=== PATIENT | male | born 1985 | race Caucasian/White ===

== ENCOUNTER 2016-08-26 19:47 | Inpatient (IN) | payer MEDICAID ==
[~2016-08-26] VITALS: Ht 152.4 cm; Wt 70.3 kg
[2016-08-26] MEDS ORDERED: ACETAMINOPHEN 325MG TABLET PO STA (22:14)
[2016-08-26] MEDS ORDERED: ONDANSETRON HCL 4MG/2ML VIAL IV STA (22:14)
[2016-08-26] MEDS ORDERED: SODIUM CHLORIDE 0.9% 1,000 ML IV ONE (22:14)
[2016-08-26] MEDS ORDERED: TRAMADOL 50MG TABLET PO ONE (22:30)
[2016-08-26 22:46] LABS: BASOPHILS % 0.4 % (0.0-2.0); CHLORIDE 96 mEq/L (98-107); EOSINOPHILS % 0.1 % (0.0-5.0); HEMATOCRIT. 44.7 % (42.0-52.0); HEMOGLOBIN. 15.7 g/dL (14.0-18.0); LYMPHOCYTES % 22.9 % (20.0-50.0); MEAN CORPUSCULAR HEMOGLOBIN 29.7 pg (28.0-32.0); MEAN CORPUSCULAR VOLUME 84.4 fL (80.0-94.0); MEAN PLATELET VOLUME 8.5 fl (7.4-10.4); MONOCYTES % 8.3 % (2.0-8.0); NEUTROPHILS % 68.3 % (40.0-76.0); PLATELET 77 x1000/uL (130-400); RED CELL DISTRIBUTION WIDTH 13.9 % (11.6-14.6)
[2016-08-26 22:50] LABS: PROTHROMBIN TIME 10.8 sec
[2016-08-26 22:53] LABS: CARBON DIOXIDE 26 mEq/L (21-32)
[2016-08-26 23:08] LABS: ETHANOL BLOOD 293 mg/dL
[2016-08-26 23:21] LABS: CLARITY URINE CLEAR (CLEAR); COLOR URINE YELLOW (YELLOW); GLUCOSE URINE NEGATIVE (NEGATIVE); KETONES URINE TRACE (NEGATIVE); LEUKOCYTE ESTERASE URINE NEGATIVE (NEGATIVE); NITRITE URINE NEGATIVE (NEGATIVE); OCCULT BLOOD URINE 3+ (NEGATIVE); PROTEIN URINE 2+ (NEGATIVE); SPECIFIC GRAVITY URINE 1.027 (1.005-1.030)
[2016-08-27] VITALS (9 sets, daily range): BP systolic 148–172; BP diastolic 73–109
[2016-08-27 00:23] LABS: *AMPHETAMINES SCREEN URINE NEGATIVE (NEGATIVE); *BARBITURATES SCREEN URINE NEGATIVE (NEGATIVE); *BENZODIAZEPINES SCREEN URINE NEGATIVE (NEGATIVE); *COCAINE SCREEN URINE NEGATIVE (NEGATIVE); CANNABINOID URINE SCREEN NEGATIVE (NEGATIVE); METHADONE URINE SCREEN NEGATIVE (NEGATIVE); OPIATES URINE SCREEN NEGATIVE (NEGATIVE); PHENCYCLIDINE URINE SCREEN NEGATIVE (NEGATIVE)
[2016-08-27] MEDS ORDERED: CEFTRIAXONE 1 G PREMIX 50 ML IV ONE (01:15)
[2016-08-27] MEDS ORDERED: AZITHROMYCIN 500 MG in DEXT 5% WATER 250 ML IV ONE (01:15)
[2016-08-27] MEDS ORDERED: SODIUM CHLORIDE 0.9% 1000ML BAG (SEPSIS BOLUS) IV ONE (01:15)
[2016-08-27] MEDS ORDERED: MORPHINE SULFATE 4 MG/ML CPJ (NOT FOR IM USE) IV ONE ×2 (02:00→04:45)
[2016-08-27] MEDS ORDERED: METOCLOPRAMIDE HCL 10MG/2ML VIAL IV ONE (02:15)
[2016-08-27] MEDS ORDERED: METRONIDAZOLE 500 MG PREMIX 100 ML IV ONE (02:30)
[2016-08-27] MEDS ORDERED: PIPERACILLIN/TAZ 3.375G PREMIX 50 ML IV ONE (02:30)
[2016-08-27 02:44] LABS: CLARITY URINE CLOUDY (CLEAR); COLOR URINE YELLOW (YELLOW); GLUCOSE URINE NEGATIVE (NEGATIVE); KETONES URINE TRACE (NEGATIVE); LEUKOCYTE ESTERASE URINE NEGATIVE (NEGATIVE); NITRITE URINE NEGATIVE (NEGATIVE); OCCULT BLOOD URINE 2+ (NEGATIVE); PROTEIN URINE 1+ (NEGATIVE)
[2016-08-27] MEDS ORDERED: ONDANSETRON HCL 4MG/2ML VIAL IV ONE ×2 (04:45→07:00)
[2016-08-27] MEDS ORDERED: LORAZEPAM 2MG/ML CPJ IV ONE ×2 (05:00→07:00)
[2016-08-27] MEDS ORDERED: SODIUM CHLORIDE 0.9% 1,000 ML IV ONE (06:47)
[2016-08-27] MEDS ORDERED: CLONIDINE 0.1MG TABLET PO PRN (09:00)
[2016-08-27] MEDS ORDERED: ACETAMINOPHEN 650MG SUPP PR PRN (09:00)
[2016-08-27] MEDS ORDERED: NA PHOS,M-B/NA PHOS,DI-BA ENEMA 118ML PR PRN (09:00)
[2016-08-27] MEDS ORDERED: DOCUSATE SODIUM 100MG CAPSULE PO PRN (09:00)
[2016-08-27] MEDS ORDERED: ACETAMINOPHEN 650MG/20.3ML UDC GT PRN (09:00)
[2016-08-27] MEDS ORDERED: GUAIFENESIN 200MG/10ML SUGAR FREE UDC PO PRN (09:00)
[2016-08-27] MEDS ORDERED: IPRATROPIUM/ALBUTEROL 0.5-3(2.5)MG/3ML NEB INH PRN (09:00)
[2016-08-27] MEDS ORDERED: ENOXAPARIN 40MG/0.4ML SYR SUBCUT SCH (09:00)
[2016-08-27] MEDS ORDERED: MAGNESIUM/ALUMINUM HYDROXIDE/SIMETHICONE 30ML UDC PO PRN (09:00)
[2016-08-27] MEDS ORDERED: ACETAMINOPHEN 325MG TABLET PO PRN (09:00)
[2016-08-27] MEDS ORDERED: LORAZEPAM 2MG/ML CPJ IV PRN (09:00)
[2016-08-27] MEDS: SODIUM CHLORIDE 0.45% 1,000 ML IV SCH ×3 (10:58→22:30)
[2016-08-27] MEDS: FOLIC ACID 1MG TABLET PO SCH (10:58)
[2016-08-27] MEDS: ONDANSETRON HCL 4MG/2ML VIAL IV PRN (11:37)
[2016-08-27] MEDS: DIPHENHYDRAMINE 50MG/ML VIAL IV PRN ×2 (11:37→20:36)
[2016-08-27] MEDS: CHLORDIAZEPOXIDE 25MG CAPSULE PO SCH ×2 (12:21→22:00)
[2016-08-27] MEDS ORDERED: POTASSIUM CHLORIDE 20MEQ TABLET SR PO NR ×2 (12:30→18:30)
[2016-08-27] MEDS: LORAZEPAM 2MG/ML CPJ IV PRN ×4 (13:14→20:36)
[2016-08-27] MEDS: SODIUM CHLORIDE 0.9% INJ 3ML FLUSH IVF SCH ×2 (13:15→22:00)
[2016-08-27 14:09] LABS: *AMPHETAMINES SCREEN URINE NEGATIVE (NEGATIVE); *BARBITURATES SCREEN URINE NEGATIVE (NEGATIVE); *BENZODIAZEPINES SCREEN URINE NEGATIVE (NEGATIVE); *COCAINE SCREEN URINE NEGATIVE (NEGATIVE); CANNABINOID URINE SCREEN NEGATIVE (NEGATIVE); METHADONE URINE SCREEN NEGATIVE (NEGATIVE); OPIATES URINE SCREEN NEGATIVE (NEGATIVE); PHENCYCLIDINE URINE SCREEN NEGATIVE (NEGATIVE)
[2016-08-27 15:59] LABS: CARBON DIOXIDE 24 mEq/L (21-32); CHLORIDE 97 mEq/L (98-107)
[2016-08-27 16:08] LABS: CREATINE KINASE 5442 IU/L (39-308)
[2016-08-28] VITALS (12 sets, daily range): BP systolic 101–163; BP diastolic 50–112
[2016-08-28 00:50] LABS: CREATINE KINASE 7360 IU/L (39-308)
[2016-08-28] MEDS: DIPHENHYDRAMINE 50MG/ML VIAL IV PRN ×2 (01:37→06:34)
[2016-08-28] MEDS: LORAZEPAM 2MG/ML CPJ IV PRN ×7 (01:38→21:20)
[2016-08-28] MEDS: SODIUM CHLORIDE 0.45% 1,000 ML IV SCH ×2 (04:46→10:31)
[2016-08-28] MEDS: SODIUM CHLORIDE 0.9% INJ 3ML FLUSH IVF SCH ×3 (06:00→20:33)
[2016-08-28] MEDS: CHLORDIAZEPOXIDE 25MG CAPSULE PO SCH ×3 (06:00→21:20)
[2016-08-28 06:31] LABS: BASOPHILS % 0.2 % (0.0-2.0); EOSINOPHILS % 0.2 % (0.0-5.0); HEMATOCRIT. 43.1 % (42.0-52.0); HEMOGLOBIN. 15.1 g/dL (14.0-18.0); LYMPHOCYTES % 16.8 % (20.0-50.0); MEAN CORPUSCULAR HEMOGLOBIN 30.1 pg (28.0-32.0); MEAN CORPUSCULAR VOLUME 85.5 fL (80.0-94.0); MONOCYTES % 7.9 % (2.0-8.0); NEUTROPHILS % 74.9 % (40.0-76.0); RED BLOOD CELL COUNT 5.04 mill/uL (4.7-6.1); RED CELL DISTRIBUTION WIDTH 13.8 % (11.6-14.6)
[2016-08-28 07:02] LABS: CARBON DIOXIDE 26 mEq/L (21-32); CHLORIDE 97 mEq/L (98-107); LDL CHOLESTEROL 93 mg/dL (5-100)
[2016-08-28 07:03] LABS: HDL CHOLESTEROL 74 mg/dL (40-59)
[2016-08-28 07:51] LABS: PLATELET 48 x1000/uL (130-400)
[2016-08-28 07:52] LABS: MEAN PLATELET VOLUME 9.3 fl (7.4-10.4)
[2016-08-28] MEDS ORDERED: POTASSIUM CHLORIDE 20MEQ TABLET SR PO NR ×3 (08:00→16:15)
[2016-08-28] MEDS: FOLIC ACID 1MG TABLET PO SCH (08:24)
[2016-08-28] MEDS: THIAMINE HCL 100MG TABLET PO SCH (08:24)
[2016-08-28] MEDS: AMLODIPINE 10MG TABLET PO SCH (16:25)
[2016-08-28] MEDS: GENTAMICIN 0.3% OPHTH DROPS 5ML BOTHEYE SCH (17:22)
[2016-08-28] MEDS: METOPROLOL TARTRATE 25MG TABLET PO SCH (20:33)
[2016-08-29] VITALS (9 sets, daily range): BP systolic 110–158; BP diastolic 62–96
[2016-08-29] MEDS: LORAZEPAM 2MG/ML CPJ IV PRN ×8 (00:14→23:02)
[2016-08-29] MEDS: GENTAMICIN 0.3% OPHTH DROPS 5ML BOTHEYE SCH ×5 (00:14→23:03)
[2016-08-29] MEDS: CHLORDIAZEPOXIDE 25MG CAPSULE PO SCH ×3 (06:24→21:08)
[2016-08-29] MEDS: SODIUM CHLORIDE 0.9% INJ 3ML FLUSH IVF SCH ×3 (06:25→21:08)
[2016-08-29] MEDS: AMLODIPINE 10MG TABLET PO SCH (08:08)
[2016-08-29] MEDS: METOPROLOL TARTRATE 25MG TABLET PO SCH ×2 (08:08→21:08)
[2016-08-29] MEDS: THIAMINE HCL 100MG TABLET PO SCH (08:09)
[2016-08-29] MEDS: FOLIC ACID 1MG TABLET PO SCH (08:09)
[2016-08-29 09:23] LABS: BASOPHILS % 0.4 % (0.0-2.0); EOSINOPHILS % 0.9 % (0.0-5.0); HEMATOCRIT. 44.9 % (42.0-52.0); HEMOGLOBIN. 15.8 g/dL (14.0-18.0); LYMPHOCYTES % 15.5 % (20.0-50.0); MEAN CORPUSCULAR HEMOGLOBIN 30.2 pg (28.0-32.0); MEAN CORPUSCULAR VOLUME 85.5 fL (80.0-94.0); MEAN PLATELET VOLUME 9.4 fl (7.4-10.4); MONOCYTES % 6.4 % (2.0-8.0); NEUTROPHILS % 76.8 % (40.0-76.0); PLATELET 69 x1000/uL (130-400); RED BLOOD CELL COUNT 5.25 mill/uL (4.7-6.1); RED CELL DISTRIBUTION WIDTH 13.9 % (11.6-14.6)
[2016-08-29 09:34] LABS: CARBON DIOXIDE 24 mEq/L (21-32); CHLORIDE 103 mEq/L (98-107)
[2016-08-29] MEDS: HYDROCODONE/ACETAMINOPHEN 5/325MG TABLET PO PRN (10:11)
[2016-08-29] MEDS: DIPHENHYDRAMINE 50MG/ML VIAL IV PRN ×2 (18:07→23:02)
[2016-08-29] MEDS: ONDANSETRON HCL 4MG/2ML VIAL IV PRN (23:14)
[2016-08-30] VITALS: BP 142/95
[2016-08-30 04:00] VITALS: BP 109/68
[2016-08-30] MEDS: SODIUM CHLORIDE 0.9% INJ 3ML FLUSH IVF SCH ×3 (07:02→22:00)
[2016-08-30] MEDS: CHLORDIAZEPOXIDE 25MG CAPSULE PO SCH ×3 (07:02→22:00)
[2016-08-30] MEDS: GENTAMICIN 0.3% OPHTH DROPS 5ML BOTHEYE SCH ×3 (07:02→18:32)
[2016-08-30 08:00] VITALS: BP 113/83
[2016-08-30] MEDS: AMLODIPINE 10MG TABLET PO SCH (10:31)
[2016-08-30] MEDS: THIAMINE HCL 100MG TABLET PO SCH ×3 (10:32→18:32)
[2016-08-30] MEDS: FOLIC ACID 1MG TABLET PO SCH (10:32)
[2016-08-30] MEDS: METOPROLOL TARTRATE 25MG TABLET PO SCH ×2 (10:32→21:00)
[2016-08-30 12:00] VITALS: BP 100/61
[2016-08-30 16:00] VITALS: BP 111/71
[2016-08-30 17:17] LABS: BASOPHILS % 0.5 % (0.0-2.0); EOSINOPHILS % 2.7 % (0.0-5.0); HEMATOCRIT. 43.2 % (42.0-52.0); LYMPHOCYTES % 23.2 % (20.0-50.0); MEAN CORPUSCULAR HEMOGLOBIN 30.3 pg (28.0-32.0); MEAN CORPUSCULAR VOLUME 87.3 fL (80.0-94.0); MEAN PLATELET VOLUME 8.8 fl (7.4-10.4); MONOCYTES % 10.3 % (2.0-8.0); NEUTROPHILS % 63.3 % (40.0-76.0); PLATELET 95 x1000/uL (130-400); RED BLOOD CELL COUNT 4.95 mill/uL (4.7-6.1); RED CELL DISTRIBUTION WIDTH 13.9 % (11.6-14.6)
[2016-08-30 17:26] LABS: AMMONIA 44 uMol/L (<32)
[2016-08-30 17:32] LABS: CARBON DIOXIDE 26 mEq/L (21-32); CHLORIDE 102 mEq/L (98-107)
[2016-08-30 17:44] LABS: CREATINE KINASE 2191 IU/L (39-308)
[2016-08-30 20:00] VITALS: BP 106/56
[2016-08-31] VITALS: BP 110/62
[2016-08-31] MEDS: GENTAMICIN 0.3% OPHTH DROPS 5ML BOTHEYE SCH ×4 (00:53→18:49)
[2016-08-31 04:00] VITALS: BP 117/65
[2016-08-31] MEDS: SODIUM CHLORIDE 0.9% INJ 3ML FLUSH IVF SCH ×3 (06:00→22:34)
[2016-08-31] MEDS: CHLORDIAZEPOXIDE 25MG CAPSULE PO SCH ×3 (06:03→22:33)
[2016-08-31 08:00] VITALS: BP 99/55
[2016-08-31] MEDS: AMLODIPINE 10MG TABLET PO SCH (09:00)
[2016-08-31] MEDS: METOPROLOL TARTRATE 25MG TABLET PO SCH ×2 (09:00→22:34)
[2016-08-31] MEDS: FOLIC ACID 1MG TABLET PO SCH (09:28)
[2016-08-31] MEDS: THIAMINE HCL 100MG TABLET PO SCH ×3 (09:28→18:49)
[2016-08-31] MEDS: HYDROCODONE/ACETAMINOPHEN 5/325MG TABLET PO PRN (09:49)
[2016-08-31] MEDS: DIPHENHYDRAMINE 50MG/ML VIAL IV PRN (11:27)
[2016-08-31 12:00] VITALS: BP 108/66
[2016-08-31 16:00] VITALS: BP 108/70
[2016-08-31 20:00] VITALS: BP 108/68
[2016-09-01] VITALS: BP 102/67
[2016-09-01] MEDS: GENTAMICIN 0.3% OPHTH DROPS 5ML BOTHEYE SCH ×5 (01:07→21:17)
[2016-09-01] MEDS: HYDROCODONE/ACETAMINOPHEN 5/325MG TABLET PO PRN (02:21)
[2016-09-01 04:00] VITALS: BP 110/63
[2016-09-01] MEDS: CHLORDIAZEPOXIDE 25MG CAPSULE PO SCH ×2 (06:34→13:37)
[2016-09-01] MEDS: SODIUM CHLORIDE 0.9% INJ 3ML FLUSH IVF SCH ×3 (06:34→21:16)
[2016-09-01 08:00] VITALS: BP 115/68
[2016-09-01] MEDS: THIAMINE HCL 100MG TABLET PO SCH ×3 (09:47→17:28)
[2016-09-01] MEDS: FOLIC ACID 1MG TABLET PO SCH (09:47)
[2016-09-01] MEDS: METOPROLOL TARTRATE 25MG TABLET PO SCH ×2 (09:48→21:16)
[2016-09-01] MEDS: AMLODIPINE 10MG TABLET PO SCH (09:49)
[2016-09-01 12:00] VITALS: BP 121/67
[2016-09-01] MEDS: ONDANSETRON HCL 4MG/2ML VIAL IV PRN (14:18)
[2016-09-01 16:00] VITALS: BP 103/63
[2016-09-01 20:00] VITALS: BP 110/80
[2016-09-01] MEDS: DIPHENHYDRAMINE 50MG/ML VIAL IV PRN (21:16)
[2016-09-02] VITALS: BP 104/64
[2016-09-02 04:00] VITALS: BP 110/70
[2016-09-02] MEDS: DIPHENHYDRAMINE 50MG/ML VIAL IV PRN (05:17)
[2016-09-02] MEDS: SODIUM CHLORIDE 0.9% INJ 3ML FLUSH IVF SCH ×3 (05:20→21:04)
[2016-09-02] MEDS: GENTAMICIN 0.3% OPHTH DROPS 5ML BOTHEYE SCH ×3 (06:57→19:06)
[2016-09-02 08:27] VITALS: BP 121/72
[2016-09-02] MEDS: FOLIC ACID 1MG TABLET PO SCH (08:28)
[2016-09-02] MEDS: AMLODIPINE 10MG TABLET PO SCH (08:28)
[2016-09-02] MEDS: THIAMINE HCL 100MG TABLET PO SCH ×3 (08:29→19:05)
[2016-09-02] MEDS: METOPROLOL TARTRATE 25MG TABLET PO SCH ×2 (08:29→21:04)
[2016-09-02 12:00] VITALS: BP 125/68
[2016-09-02 20:00] VITALS: BP 109/65
[2016-09-02] MEDS: ONDANSETRON HCL 4MG/2ML VIAL IV PRN (20:07)
[2016-09-02] MEDS ORDERED: METOCLOPRAMIDE HCL 10MG/2ML VIAL IV NR (20:30)
[2016-09-02 22:02] VITALS: BP 109/65
== END 2016-09-02 22:35 | disposition home or self-care (01) | DRG 775 ==
LOC: ER 20:34 → 3WST 08-27 02:23 → EDBEDREQ 08-27 04:59 → ENRESERV 08-27 05:31 → 6EST 08-29 08:54
PROVIDERS: ADMIT Family Medicine; ATTEND Family Medicine
DX: F10.239 Alcohol dependence with withdrawal, unspecified (principal); G93.41 Metabolic encephalopathy; K85.90 Acute pancreatitis without necrosis or infection, unspecified; D69.6 Thrombocytopenia, unspecified; F10.229 Alcohol dependence with intoxication, unspecified; E11.9 Type 2 diabetes mellitus without complications; I10 Essential (primary) hypertension; E87.1 Hypo-osmolality and hyponatremia; E87.6 Hypokalemia; Y90.8 Blood alcohol level of 240 mg/100 ml or more; Z78.1 Physical restraint status
CPT/HCPCS: 36415; 71010; 74176; 80048; 80053; 80061; 80076; 80305; 81001; 82140; 82248; 82550; 83605; 83690; 83735; 84132; 85025; 85610; 87040; 87086; 87493; 93005; 96361; 96365; 96367; 96375; 96376; 97116; 97162; 97166; 97530; 97535; 99291; G0482; J0456; J1200; J2060; J2270; J2405; J2543; J2765; J3490; J7030; J7060; A4315

== ENCOUNTER 2016-09-16 11:24 | Emergency (ER) | payer MEDICAID, OTHER ==
[~2016-09-16] VITALS: Ht 162.6 cm; Wt 70.0 kg
[2016-09-16] MEDS ORDERED: SODIUM CHLORIDE 0.9% 1,000 ML IV ONE (11:52)
[2016-09-16] MEDS ORDERED: LORAZEPAM 2MG/ML CPJ IV ONE (12:00)
[2016-09-16 13:26] LABS: BASOPHILS % 0.6 % (0.0-2.0); EOSINOPHILS % 0.6 % (0.0-5.0); HEMATOCRIT. 39.2 % (42.0-52.0); HEMOGLOBIN. 13.6 g/dL (14.0-18.0); LYMPHOCYTES % 17.8 % (20.0-50.0); MEAN CORPUSCULAR HEMOGLOBIN 30.2 pg (28.0-32.0); MEAN CORPUSCULAR VOLUME 87.5 fL (80.0-94.0); MEAN PLATELET VOLUME 8.6 fl (7.4-10.4); MONOCYTES % 7.2 % (2.0-8.0); NEUTROPHILS % 73.8 % (40.0-76.0); PLATELET 196 x1000/uL (130-400); RED BLOOD CELL COUNT 4.49 mill/uL (4.7-6.1); RED CELL DISTRIBUTION WIDTH 15.5 % (11.6-14.6)
[2016-09-16 13:31] LABS: PROTHROMBIN TIME 10.7 sec
[2016-09-16 13:44] LABS: CARBON DIOXIDE 28 mEq/L (21-32); CHLORIDE 106 mEq/L (98-107); ETHANOL BLOOD < 10 mg/dL; TROPONIN I < 0.02 ng/mL (0.00-0.04)
[2016-09-16] MEDS ORDERED: ACETAMINOPHEN 325MG TABLET PO ONE (13:45)
[2016-09-16 14:15] LABS: CLARITY URINE CLEAR (CLEAR); COLOR URINE YELLOW (YELLOW); GLUCOSE URINE NEGATIVE (NEGATIVE); KETONES URINE NEGATIVE (NEGATIVE); LEUKOCYTE ESTERASE URINE NEGATIVE (NEGATIVE); NITRITE URINE NEGATIVE (NEGATIVE); OCCULT BLOOD URINE NEGATIVE (NEGATIVE); PH URINE 6.5 (4.5-8.0); PROTEIN URINE NEGATIVE (NEGATIVE); SPECIFIC GRAVITY URINE 1.009 (1.005-1.030); UROBILINOGEN URINE 0.2 E.U./dL (0.2-1.0)
[2016-09-16 14:30] VITALS: BP 119/76
[2016-09-16 14:53] LABS: *AMPHETAMINES SCREEN URINE NEGATIVE (NEGATIVE); *BARBITURATES SCREEN URINE NEGATIVE (NEGATIVE); *BENZODIAZEPINES SCREEN URINE NEGATIVE (NEGATIVE); *COCAINE SCREEN URINE NEGATIVE (NEGATIVE); CANNABINOID URINE SCREEN NEGATIVE (NEGATIVE); METHADONE URINE SCREEN NEGATIVE (NEGATIVE); OPIATES URINE SCREEN NEGATIVE (NEGATIVE); PHENCYCLIDINE URINE SCREEN NEGATIVE (NEGATIVE)
== END 2016-09-16 14:55 | disposition home or self-care (01) ==
LOC: ER 11:40
DX: F10.239 Alcohol dependence with withdrawal, unspecified (principal)
CPT/HCPCS: 36415; 80053; 80305; 81003; 83690; 84484; 85025; 85610; 93005; 96361; 96374; 99285; G0482; J2060; Z7610; J7030